=== PATIENT | female | born 1985 | race Caucasian/White ===

== ENCOUNTER 2017-05-03 18:06 | Emergency (ER) | payer SELFPAY ==
[2017-05-03 18:37] VITALS: BP 134/95
[2017-05-03] MEDS ORDERED: Acetaminophen/HYDROcodone 325-5 MG Tab PO ONE ×2 (19:15→20:25)
--- NOTE | 2017-05-03 19:24 | EDM.PDOC ---
ED HPI GENERAL MEDICAL PROBLEM - General Chief Complaint: Head Injury Stated Complaint: FELL AND INJURED BACK TODAY Time Seen by Provider: 05/03/17 19:07 Source of Information: Reports: Patient History Limitations: Reports: No Limitations - History of Present Illness INITIAL COMMENTS - FREE TEXT/NARRATIVE: Patient is a 31-year-old female presents ED complaining of head, neck, thoracic spine, and lumbar spine pain. Patient states while hanging up denney on a deck she was standing close to the edge lost her balance and fell landing on her back. Fell approximate 6 feet. There was possible LOC. This was not witnessed. Pain to these areas as severe. She did take Tylenol 500 mg prior to arrival. This occurred approximately 1.5 hours ago. She does also complain of some intermittent blurriness to her eyes and also nausea. She denies numbness or tingling, weakness, pain to extremities, and all pain, chest pain, shortness of breath, or any additional complaints. She is sitting in the hospital bed using her phone. She walked into the room with no difficulty. Patient denies being . She's had no period for almost one year with a depo shot. Treatments TOP INSTALLER: Reports: Acetaminophen bilateral shoulder area Pain Score (Numeric/FACES): 8 - Related Data Allergies Allergy/AdvReac Type Severity Reaction Status Date / Time ketorolac tromethamine Allergy Hives Verified 05/03/17 18:37 [From Toradol] metoclopramide HCl Allergy Hives Verified 05/03/17 18:37 [From Reglan] prochlorperazine Allergy Hives Verified 05/03/17 18:37 [From Compazine] Home Meds: Home Meds medroxyPROGESTERone Acetate [Depo-Provera] 150 mg IM ASDIRECTED 05/03/17 [ History] Past Medical History HEENT History: Reports: None Cardiovascular History: Reports: None, Blood Clots/VTE/DVT Respiratory History: Reports: None Gastrointestinal History: Reports: None Genitourinary History: Reports: None DIRECTOR OF EVENT MANAGEMENT History: Reports: Musculoskeletal History: Reports: None Neurological History: Reports: Migraines, Seizure Psychiatric History: Reports: Anxiety, Depression Endocrine/Metabolic History: Reports: None Hematologic History: Reports: None Immunologic History: Reports: None Oncologic (Cancer) History: Reports: None Dermatologic History: Reports: None - Infectious Disease History Infectious Disease History: Reports: Chicken Pox, Shingles - Past Surgical History HEENT Surgical History: Reports: Adenoidectomy, Myringotomy w Tube(s), Tonsillectomy Female Surgical History: Reports: Section Dermatological Surgical History: Reports: Plastic Surgical Reconstruction/Repair Social & Family History - Family History Family Medical History: Noncontributory - Tobacco Use Smoking Status *Q: Never Smoker Second Hand Smoke Exposure: No - Caffeine Use Caffeine Use: Reports: None - Recreational Drug Use Recreational Drug Use: No ED ROS GENERAL - Review of Systems Review Of Systems: See Below ED EXAM, HEAD INJURY - Physical Exam Exam: See Below Exam Limited By: No Limitations General Appearance: Alert, WD/WN, No Apparent Distress Head: Atraumatic, Normocephalic Nexus Criteria: Posterior, Midline Cervical Tenderness. No: Evidence of Intoxication, Altered Level of Consciousness, Focal Neurological Deficit, Painful Distraction Injuries Eyes: Bilateral Eye: EOMI, Nystagmus (None found), PERRL Ears: Normal External Exam, Hearing Grossly Normal Nose: Normal Inspection, Normal Mucousa Throat/Mouth: Normal Inspection, Normal Oropharynx, Normal Voice, No Airway Compromise Neck: Full Range of Motion, Normal Alignment, Normal Inspection, Painful Range of Motion, Paraspinous Muscle Tender, Spinous Processes Tender, Tender Lateral, Tender Midline. No: Muscle Spasm Respiratory: No Respiratory Distress, Lungs Clear, Normal Breath Sounds, No Accessory Muscle Use, Chest Non-Tender Cardiovascular: Normal Peripheral Pulses, Regular Rate, Rhythm, No Murmur GI/Abdominal Exam: Normal Bowel Sounds, Soft, Non-Tender, No Organomegaly, No Distention Back Exam: Normal Inspection, Paraspinal Tenderness, Vertebral Tenderness ( Thoracic lumbar spine) Extremities: Normal Inspection, Normal Range of Motion, Non-Tender, Normal Capillary Refill Neurologic: rn allergy II-XII nml As Tested, No Motor/Sensory Deficits, Alert, Normal Mood/Affect, Oriented x 3 Skin: Normal Color, Warm/Dry. No: Ecchymosis - Antonio Coma Score Best Eye Response (Antonio): (4) Open Spontaneously Best Verbal Response ([place]): (5) Oriented Best Motor Response ([place]): (6) Obeys Commands Course - Vital Signs Last Recorded V/S: Last Vital Signs Temp 97.8 F 05/03/17 18:33 Pulse 90 05/03/17 18:33 Resp 18 05/03/17 18:33 BP 134/95 H 05/03/17 18:33 Pulse Ox 97 05/03/17 18:33 - Orders/Labs/Meds Orders: Active Orders 24 hr Category Date Time Status Lumbar Spine 2 or 3V [CR] Stat Exams 05/03/17 19:15 Taken Thoracic Spine 3V [CR] Stat Exams 05/03/17 19:15 Taken Acetaminophen/HYDROcodone [[place] 325-5 MG] Med 05/03/17 20:25 Once 1 tab PO ONETIME ONE Ondansetron [Zofran ODT] Med 05/03/17 20:25 Once 4 mg PO ONETIME ONE Medication Orders Hydrocodone Bitart/Acetaminophen ([place] 325-5 Mg) 1 tab PO ONETIME ONE Stop: 05/03/17 20:26 Ondansetron HCl (Zofran Odt) 4 mg PO ONETIME ONE Stop: 05/03/17 20:26 Meds: Medications Generic Name Dose Route Start Last Admin Trade Name Freq PRN Reason Stop Dose Admin Hydrocodone Bitart/Acetaminophen 1 tab 05/03/17 20:25 [place] 325-5 Mg PO 05/03/17 20:26 ONETIME ONE Ondansetron HCl 4 mg 05/03/17 20:25 Zofran Odt PO 05/03/17 20:26 ONETIME ONE Discontinued Medications Generic Name Dose Route Start Last Admin Trade Name Freq PRN Reason Stop Dose Admin Hydrocodone Bitart/Acetaminophen 1 tab 05/03/17 19:15 05/03/17 19:37 [place] 325-5 Mg PO 05/03/17 19:16 1 tab ONETIME ONE Administration - Re-Assessments/Exams Free Text/Narrative Re-Assessment/Exam: Ordered head/cervical spine ct w/o contrast, lumbar/thoracic spine x-ray, and norco 5-325mg PO x1. 05/03/17 20:12 CT of the head and neck did not reveal any acute abnormalities. X-rays of the lumbar/thoracic spine reviewed with Dr. Charlton with no acute bony abnormalities. Final interpretation pending. Will discharge patient home with instructions as documented. 05/03/17 20:[address] of the head and neck and x-rays of the lumbar and thoracic spine with patient. was present. Appeared to be more worked up with him present. She was crying. look agitated. was asked to leave the room per nursing staff. I asked the patient if she felt safe at home and assaulted by her to which she denied. She states becomes agitated with coming to the emergency department. Per nursing staff patient did vomit 1 after receiving the [place] with initial admission to the ED. She is requesting something additional for pain. Ordered [place] one tab by mouth and Zofran 4 mg ODT. Patient discharged home. Departure - Departure Time of Disposition: 20:14 Disposition: Home, Self-Care 01 Condition: Good Clinical Impression: Multiple contusions, Neck pain Head pain Qualifiers: Headache type: unspecified Headache chronicity pattern: acute headache Intractability: not intractable Qualified Code(s): R51 - Headache Back pain Qualifiers: Back pain location: back pain in unspecified location Chronicity: acute Back pain laterality: bilateral Qualified Code(s): M54.9 - Dorsalgia, unspecified - Discharge Information Instructions: Head Injury, Adult, [id number], Facial or Scalp Contusion, Easy -to-Read Referrals: PCP,None [Primary Care Provider] - Forms: ED Department Discharge, ED Return to Work/School Form Additional Instructions: CT of the head and neck did not reveal any acute abnormalities. X-rays of the lumbar and thoracic spine revealed no acute bony abnormalities. Final interpretations pending. Etiology current complaint is contusions to the head, neck, and back. Thus treatment is ibuprofen and Tylenol as needed in alternating fashion for pain. Apply ice to the affected areas as needed. Refrain from any activities that cause worsening pain. Follow-up with your PCP as needed for reevaluation. Symptoms should resolve over the next few days. Return to the ED as needed for any new or worsening pain. No driving this evening since receiving a sedative medication while in the ED. - My Orders Last 24 Hours: My Active Orders 05/03/17 19:15 Lumbar Spine 2 or 3V [CR] Stat Thoracic Spine 3V [CR] Stat 05/03/17 20:25 Acetaminophen/HYDROcodone [[place] 325-5 MG] 1 tab PO ONETIME ONE Ondansetron [Zofran ODT] 4 mg PO ONETIME ONE - Assessment/Plan Last 24 Hours: My Active Orders 05/03/17 19:15 Lumbar Spine 2 or 3V [CR] Stat Thoracic Spine 3V [CR] Stat 05/03/17 20:25 Acetaminophen/HYDROcodone [[place] 325-5 MG] 1 tab PO ONETIME ONE Ondansetron [Zofran ODT] 4 mg PO ONETIME ONE
--- NOTE | 2017-05-03 19:58 | CT ---
Head CT Technique: Multiple axial sections through the brain were obtained. Intravenous contrast was not utilized. Comparison: No previous intracranial imaging. Findings: Ventricles along with basal cisterns and sulci over the convexities are within normal limits for the patient's age. No abnormal parenchymal densities are seen. No evidence of intracranial hemorrhage. No midline shift or mass effect is seen. Bone window settings were reviewed which shows the visualized sinuses to appear clear. No calvarial abnormality is appreciated. Impression: 1. Nothing acute is seen on noncontrast head CT study. Diagnostic code #1
--- NOTE | 2017-05-03 20:01 | CT ---
CT cervical spine Technique: Multiple axial sections through the cervical spine were obtained from above C1 inferiorly to the bottom of T1. Reconstructed sagittal and coronal images were reviewed. Findings: Mastoid sinuses and middle ear cavities are clear. Posterior skull base is intact. Vertebral bodies and posterior arches appear intact. No bony central or bony neural foraminal stenosis is seen. No abnormal subluxation is seen on the reconstructed sagittal images. Impression: 1. No abnormality is identified on CT study of the cervical spine. Diagnostic code #1
[2017-05-03] MEDS ORDERED: Ondansetron 4 MG Tab.DIS PO ONE (20:25)
--- NOTE | 2017-05-04 10:46 | CR ---
Lumbar spine: AP and lateral views of the lumbar spine were obtained. Vertebral body heights and disc spaces are maintained. Pedicles as well as transverse and spinous processes are intact. No subluxation or fracture is seen. Impression: 1. Unremarkable two-view lumbar spine study. Diagnostic code #1
--- NOTE | 2017-05-04 10:46 | CR ---
Thoracic spine: AP, lateral and swimmer's views of the thoracic spine were obtained. Comparison: No previous study. Slight scoliosis is noted. Pedicles are intact. No fracture, dislocation or other bony abnormality is seen. Impression: 1. Slight scoliosis. 2. No additional abnormality is appreciated on three-view thoracic spine study. Diagnostic code #2
== END 2017-05-03 20:30 | disposition home or self-care (01) ==
LOC: JD.ED 18:06
DX: S10.93XA Contusion of unspecified part of neck, initial encounter (principal); R51 Headache; M54.9 Dorsalgia, unspecified; Z86.718 Personal history of other venous thrombosis and embolism; Z96.22 Myringotomy tube(s) status; Z98.890 Other specified postprocedural states; Z88.6 Allergy status to analgesic agent; Z88.8 Allergy status to other drugs, medicaments and biological substances; W18.39XA Other fall on same level, initial encounter
CPT/HCPCS: 70450; 72072; 72100; 72125; 99284; A9270